=== PATIENT | male | born 1985 | race African-American/Black ===

== ENCOUNTER 2019-01-03 18:21 | Emergency (ER) | payer SELFPAY ==
[2019-01-03 19:18] LABS: Bilirubin Negative (Negative); Blood, Urine Negative (Negative); Glucose, Urine (Dipstick) Negative (Negative); Leukocyte Negative (Negative); Nitrite Negative (Negative); Protein, Urine (Dipstick) Negative (Neg-Trace)
[2019-01-03] MEDS ORDERED: methylPREDNISolone Acetate 40 mg/ml Vial ONE (19:21)
[2019-01-03 19:26] LABS: #Basophils 0.1 thou/uL (0.0-0.2); #Lymphocytes 1.7 thou/uL (1.20-3.40); #Monocytes 0.7 thou/uL (0.11-0.59); #Neutrophils 3.5 thou/uL (1.40-6.50); %Basophils 1.9 % (0.0-1.0); %Eosinophils 14.4 % (0.0-10.0); %Lymphocytes 23.8 % (21.0-51.0); %Monocytes 9.8 % (0.0-10.0); %Neutrophils 50.2 % (42.0-75.0); Hemoglobin 13.2 g/dL (14.0-18.0); Mean Corpuscular HGB CONC 31.2 g/dL (32.0-36.0); Mean Corpuscular Hemoglobin 27.2 pg (27.0-31.0); Mean Corpuscular Volume 87.1 fL (78.0-98.0); Mean Platelet Volume 7.1 fL (7.4-10.4); Platelet Count 246 thou/uL (130-400); RBC Distribution Width 12.5 % (11.5-14.5); Red Blood Cell (RBC) Count 4.86 mill/uL (4.70-6.10); White Blood Cell (WBC) Count 6.9 thou/uL (4.8-10.8)
[2019-01-03 19:32] LABS: Clarity Clear (Clear)
[2019-01-03 19:41] LABS: ALT (SGPT) 23 U/L (8-55); AST (SGOT) 28 U/L (5-34); Albumin 4.3 g/dL (3.5-5.0); Alkaline Phosphatase 55 U/L (40-150); Anion Gap 14 mmol/L (10-20); BUN (Urea Nitrogen) 12 mg/dL (8.9-20.6); Bilirubin, Total 0.3 mg/dL (0.2-1.2); Calc. Creatinine Clearance 0 mL/min (70-130); Calcium 9.3 mg/dL (7.8-10.44); Carbon Dioxide 23 mmol/L (22-29); Chloride 106 mmol/L (98-107); Estimated GFR-MDRD 76; Globulin 2.4 g/dL (2.4-3.5); Glucose 89 mg/dL (70-105); Lipase 42 U/L (8-78); Potassium 3.9 mmol/L (3.5-5.1); Protein, Total 6.7 g/dL (6.0-8.3); Sodium 139 mmol/L (136-145)
[2019-01-04 01:09] LABS: Chlam.trachomatis by PCR,Urine Not Detected (NotDetected)
== END 2019-01-03 20:05 | disposition home or self-care (01) ==
LOC: NAV ERS 18:21
DX: A63.0 Anogenital (venereal) warts (principal); L25.9 Unspecified contact dermatitis, unspecified cause; F17.210 Nicotine dependence, cigarettes, uncomplicated
CPT/HCPCS: 80053; 81003; 83690; 85025; 87491; 87591; 96372; 99283; A4353; J1030